=== PATIENT | male | born 1980 | race Caucasian/White ===

== ENCOUNTER 2021-02-02 23:58 | Emergency (ER) | payer MEDICAID ==
[2021-02-03] MEDS ORDERED: CLINDAMYCIN 900 MG/50 ML 50 ML IV STA (00:42)
[2021-02-03] MEDS ORDERED: AMPICILLIN/SULBACTAM 3 GM in SODIUM CHLORIDE 0.9% MINIBAG 100 ML IV STA (00:45)
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
[2021-02-03 01:11] LABS: BASOPHILS # (AUTO) 0.1 10^3/uL (0.0-0.1); BASOPHILS % (AUTO) 0.3 %; EOSINOPHILS # (AUTO) 0.1 10^3/uL (0.0-0.7); EOSINOPHILS % (AUTO) 0.4 %; HGB - HEMOGLOBIN 14.8 g/dL (14.0-18.0); LYMPHOCYTES # (AUTO) 0.8 10^3/uL (1.5-3.5); LYMPHOCYTES % (AUTO) 4.8 %; MEAN CORPUSCULAR HEMOGLOBIN 30.2 pg (27.0-31.0); MEAN CORPUSCULAR HGB CONC 34.4 g/dL (32.0-36.0); MEAN CORPUSCULAR VOLUME 87.8 fL (80.0-94.0); MEAN PLATELET VOLUME 10.2 fL (7.4-11.4); MONOCYTES # (AUTO) 0.9 10^3/uL (0.0-1.0); MONOCYTES % (AUTO) 5.3 %; NEUTROPHILS # (AUTO) 14.2 10^3/uL (1.5-6.6); NEUTROPHILS % (AUTO) 88.9 %; PLT - PLATELET COUNT 319 10^3/uL (130-450); RED CELL DISTRIBUTION WIDTH 12.8 % (12.0-15.0); WHITE BLOOD COUNT 15.9 x10^3/uL (4.8-10.8)
[2021-02-03 01:21] LABS: ALBUMIN 4.4 g/dL (3.2-5.5); ALBUMIN/GLOBULIN RATIO 1.5 (1.0-2.2); BILIRUBIN,TOTAL 0.9 mg/dL (0.2-1.0); CALCIUM 9.4 mg/dL (8.5-10.3); CREATININE 1.5 mg/dL (0.6-1.2); POTASSIUM 3.8 mmol/L (3.5-5.0); TOTAL PROTEIN 7.3 g/dL (6.7-8.2)
--- NOTE | 2021-02-03 01:23 | XRAY Report ---
PROCEDURE: Hand 3 View RT INDICATIONS: right hand swelling, redness TECHNIQUE: 3 views of the hand(s) acquired. COMPARISON: None FINDINGS: Bones: No fractures or dislocations. No suspicious bony lesions. No bony erosive changes. Soft tissues: No suspicious soft tissue calcifications. Soft tissue swelling surrounding fourth PIP joint is seen. IMPRESSION: Soft tissue swelling surrounding fourth PIP joint. No right hand fracture or dislocation. No radiogra phic evidence of osteomyelitis. Reviewed by: Brody Marvin MD on 02/03/2021 1:21 AM PST Approved by: Brody Marvin MD on 02/03/2021 1:21 AM PST Station ID: [id number]
[2021-02-03] MEDS ORDERED: CLINDAMYCIN 900 MG/50 ML 50 ML IV ONE (01:59)
[2021-02-03 03:03] VITALS: BP 148/83
== END 2021-02-03 03:15 | disposition left against medical advice (07) ==
LOC: ED 23:58
DX: I89.1 Lymphangitis (principal); M79.89 Other specified soft tissue disorders; Z53.29 Procedure and treatment not carried out because of patient's decision for other reasons; F17.200 Nicotine dependence, unspecified, uncomplicated
CPT/HCPCS: 36415; 80053; 85025; 87040; 96365; 96367; 99283

== ENCOUNTER 2021-02-26 05:39 | Emergency (ER) | payer MEDICAID ==
[2021-02-26 05:50] VITALS: BP 138/93
[2021-02-26] MEDS ORDERED: LIDOCAINE 1% 2 ML VIAL SUBQ STA (06:21)
--- NOTE | 2021-02-26 06:21 | ED Physician Documentation ---
PD HPI LOWER EXT INJURY - Stated complaint Stated Complaint: L FOOT INJ - Chief complaint Chief Complaint: Laceration - History obtained from History obtained from: Patient - History of Present Illness PD HPI LOW EXT INJURY LOCATION: Left, Foot Type of injury: Puncture wound Timing - details: Abrupt onset Pain level now: 5 Improved by: Rest Worsened by: Palpating, Other (weight-bearing) Associated symptoms: Swelling, Discolored Recently seen: Not recently seen - Additional information Additional information: patient stepped on a carpentry nail 3 days ago; the nail punctured the sole of his left foot. He was wearing sneakers and socks at the time of the injury. There has been increased pain and swelling with redness surrounding the puncture site since the injury. Denies fever. Last tetanus was 8 years ago Review of Systems Constitutional: denies: Fever Skin: reports: Rash (erythema surrounding puncture wound of left foot), Other (puncture to left foot) Musculoskeletal: reports: Extremity pain (left foot), Pain with weight bearing (left foot) PD PAST MEDICAL HISTORY - Past Medical History Cardiovascular: None Respiratory: None Endocrine/Autoimmune: None GI: None : None HEENT: None Psych: Anxiety Musculoskeletal: None, Chronic back pain Derm: None - Past Surgical History Past Surgical History: Yes HEENT: Myringotomy (tubes) - Present Medications Home Medications: Ambulatory Orders Medication Instructions Recorded Confirmed Ciprofloxacin HCl [Cipro] 500 mg PO BID #20 tablet 02/26/21 Oxycodone HCl/Acetaminophen 1 - 2 each PO Q6H PRN #14 tablet 02/26/21 [Percocet 5-325 mg Tablet] - Allergies Allergies/Adverse Reactions: Allergies Allergy/AdvReac Type Severity Reaction Status Date / Time ceftriaxone sodium * Allergy unknown Verified 02/26/21 05:51 [From Rocephin] iodine Allergy vomiting Verified 02/26/21 05:51 - Social History Does the pt smoke?: Yes Smoking Status: Current every day smoker Does the pt drink ETOH?: Yes Does the pt have substance abuse?: Yes - Immunizations Immunizations are current?: Yes Immunizations: TDAP >10years/unknown - POLST Patient has POLST: No PD ED PE NORMAL - Vitals Vital signs reviewed: Yes - General General: Alert and oriented X 3, No acute distress, Well developed/nourished PD ED PE EXPANDED - Extremities Feet visual: 1 - swelling (swelling, TTP, surrounding confluent erythema, mild fluctuance), tenderness Results - Vitals Vitals: Oxygen O2 Source Room air - Labs Labs: Microbiology 02/26/21 07:01 Wound Culture - Preliminary Abscess Beta Hemolytic Strep Group A Procedures - Abscess I&D (location) Foot left Plantar Preparation: Chlorhexadine, Lidocaine 1% Incision: Purulent drainage, Culture obtained, Other (bevelled edge of 18g needle (on 3 cc syringe) used to make small (3-4 mm length) incision into area of maximal fluctuance) Other: Pt tolerated well, Dressing applied, Antibiotic prescribed PD MEDICAL DECISION MAKING - ED course Complexity details: considered differential, d/w patient ED course: Puncture wound to left foot through footwear 3 days ago with obvious signs of infection on exam (swelling, erythema, fluctuance). I+D performed with pus return. Last tetanus was 8 years ago, but given the nature of the injury (would be considered a tetanus-prone wound), will give tetanus booster. Rx cipro to cover typical pathogens but broadened to include pseudomonas considering puncture wound through footwear. Follow up for recheck of the wound was encouraged and return to ED precautions discussed I am prescribing a short course of short-acting opioid pain medication for this patient. I have reviewed the patients DIRECTOR OF MEDICAL REVIEW and no concerning findings were noted. I have discussed that the opioids are for short term therapy only, and will not be refilled from the ED. Departure - Departure Disposition: 01 Home, Self Care Clinical Impression: Puncture wound of foot, left Qualifiers: Encounter type: initial encounter Qualified Code(s): S91.332A - Puncture wound without foreign body, left foot, initial encounter Condition: Good Instructions: ED Infec Skin Cellulitis, ED Wound Puncture General Prescriptions: Ciprofloxacin HCl [Cipro] 500 mg PO BID #20 tablet Oxycodone HCl/Acetaminophen [Percocet 5-325 mg Tablet] 1 - 2 each PO Q6H PRN #14 tablet PRN Reason: pain Comments: Follow up with your primary care provider in 3-5 days for recheck of the wound. Prescriptions for an antibiotic (cipro) and pain medication (percocet) have been electronically submitted to [facility] pharmacy in [place]. I am prescribing a short course of narcotic pain medication for you. These are potentially dangerous and addictive medications that should be used carefully. These medications may constipate you. Take an [id number] stool softener (docusate) twice daily with plenty of water while taking these medications. If you go 24 hours without a bowel movement, take [id number] miralax, per package instructions. Do not drink or drive while taking these medications. If you received narcotic or sedating medications while in the emergency department, do not drive for 24 hours. Store this medication in a safe, secure place and out of reach of children. It is a violation of federal law to give or sell this medication to another person or to use in a manner other than prescribed. The ED will not refill narcotic prescriptions, including prescriptions lost or stolen. To dispose of unwanted medications: 1. [facility] at [address] in [place] has a medication drop box. They accept prescription medications (in pill form) Thursday through Thursday 9:00 a.m. to 5:00 p.m. 2. The [facility] [employer] accepts prescription medications (in pill form only) for disposal year round. Call for more in formation. 3. Contact the [facility] for the next [facility] sponsored prescription drug collection event. , [phone], or [phone]; Discharge Date/Time: 02/26/21 08:00
[2021-02-26] MEDS ORDERED: TETANUS/DIPHTHERIA/PERTUSSIS 0.5 ML SYRINGE IM ONE (06:22)
[2021-02-26] MEDS ORDERED: CIPROFLOXACIN 250 MG TABLET PO STA (07:46)
== END 2021-02-26 08:00 | disposition home or self-care (01) ==
LOC: ED 05:39
DX: S91.332A Puncture wound without foreign body, left foot, initial encounter (principal); W45.0XXA Nail entering through skin, initial encounter; W22.8XXA Striking against or struck by other objects, initial encounter; L08.9 Local infection of the skin and subcutaneous tissue, unspecified; Z23 Encounter for immunization; F17.200 Nicotine dependence, unspecified, uncomplicated
CPT/HCPCS: 10060; 87070; 87077; 87205; 90471; 90715; 99283; A9270

== ENCOUNTER 2021-06-23 21:41 | Emergency (ER) | payer MEDICAID ==
--- NOTE | 2021-06-23 22:35 | ED Physician Documentation ---
PD HPI SKIN - Stated complaint Stated Complaint: L LEG INFECTION - Chief complaint Chief Complaint: Wound - History obtained from History obtained from: Patient (s) - History of Present Illness Timing - onset: How many days ago (2) Timing - details: Gradual onset Location: LLE Quality / character: Painful, Discolored, Swelling Associated symptoms: No: Fever Recently seen: Not recently seen - Additional information Additional information: c/o left lower leg erythema, swelling, tenderness x 2 days. no recent injury. He says he was able to express pus from the lesion yesterday but presents due to steadily increasing size of the lesion and extent of surrounding swelling Review of Systems Constitutional: reports: Reviewed and negative Musculoskeletal: reports: Extremity pain, Extremity swelling PD PAST MEDICAL HISTORY - Past Medical History Past Medical History: Yes Cardiovascular: None Respiratory: None Endocrine/Autoimmune: None GI: None : None HEENT: None Psych: Anxiety Musculoskeletal: None, Chronic back pain Derm: None - Past Surgical History Past Surgical History: Yes HEENT: Myringotomy (tubes) - Present Medications Home Medications: Ambulatory Orders Medication Instructions Recorded Confirmed Sulfamethox/Trimeth 800/160 1 tablet PO BID 10 Days #14 tablet 06/23/21 [Bactrim Ds] cephALEXin [Keflex] 500 mg PO Q6H #28 cap 06/23/21 - Allergies Allergies/Adverse Reactions: Allergies Allergy/AdvReac Type Severity Reaction Status Date / Time ceftriaxone sodium * Allergy unknown Verified 06/23/21 21:48 [From Rocephin] iodine Allergy vomiting Verified 06/23/21 21:48 - Social History Does the pt smoke?: Yes Smoking Status: Current every day smoker Does the pt drink ETOH?: Yes Does the pt have substance abuse?: Yes - Immunizations Immunizations are current?: Yes Immunizations: TDAP >10years/unknown - POLST Patient has POLST: No PD ED PE NORMAL - Vitals Vital signs reviewed: Yes - General General: Alert and oriented X 3, No acute distress, Well developed/nourished PD ED PE EXPANDED - Extremities CARMINA LE visual: 1 - swelling (confluent erythema, TTP, no fluctuance or discharge. swelling (without erythema) extends distally to ankle and proximally to upper pre-tibial area), tenderness Results - Vitals Vitals: Oxygen O2 Source Room air - Labs Labs: Microbiology 06/23/21 21:52 Wound Culture - Final Left Lower Extremity Methicillin Resist S. Aureus PD MEDICAL DECISION MAKING - ED course Complexity details: reviewed old records, considered differential, d/w patient ED course: presents with cellulitis LLE, scant discharge on arrival that was sent for wound culture by ED RN (no discharge was still present by the time of my exam). Will cover for bacterial cellulitis, given keflex and bactrim in ED and p rescriptions for same transmitted to his pharmacy of choice. We discussed antibiotic options and he says he has had cephalexin the past without adverse reaction (ceftriaxone is listed as an allergy). Departure - Departure Disposition: 01 Home, Self Care Clinical Impression: Cellulitis Qualifiers: Site of cellulitis: extremity Site of cellulitis of extremity: lower extremity Laterality: left Qualified Code(s): L03.116 - Cellulitis of left lower limb Condition: Good Instructions: ED Infec Skin Cellulitis Follow-Up: [facility] [Provider Group] Prescriptions: Sulfamethox/Trimeth 800/160 [Bactrim Ds] 1 tablet PO BID 10 Days #14 tablet cephALEXin [Keflex] 500 mg PO Q6H #28 cap Comments: Follow up with your primary care provider in 3-4 days for reevaluation. Prescriptions for antibiotics (keflex and bactrim) have been electronically submitted to [facility] pharmacy in [place] Discharge Date/Time: 06/23/21 23:00
[2021-06-23] MEDS ORDERED: SULFAMETH/TRIMETH DS 800/160 MG TABLET PO STA (22:55)
[2021-06-23] MEDS ORDERED: cephALEXin 250 MG CAPSULE PO STA (22:55)
[2021-06-23 23:01] VITALS: BP 135/72
== END 2021-06-23 23:00 | disposition home or self-care (01) ==
LOC: ED 21:41
DX: L03.116 Cellulitis of left lower limb (principal); F17.200 Nicotine dependence, unspecified, uncomplicated
CPT/HCPCS: 87070; 87181; 87205; 99282; 99283; A9270

== ENCOUNTER 2022-04-07 12:03 | Emergency (ER) | payer MEDICAID ==
--- NOTE | 2022-04-07 12:45 | ED Physician Documentation ---
History of Present Illness - Stated complaint Stated Complaint: HERNIA - Chief complaint Chief Complaint: Abd Pain - Additonal information Additional information: 41-year-old male presents emergency department for evaluation of intermittent right inguinal pain. He believes he has a hernia. 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 A number weeks ago he was having a bowel movement and thinks he may have strained too hard as he felt a pop. He reports that when he is up and about during the day wearing his work belt and tight pants he does not have pain but when he gets home at the end of the day he showers and removes his usual work clothing he begins to have pain. He often feels a swelling in this region that he is able to push back in. He has had no fevers, no history of surgical procedures on his abdomen. He has no melena or hematochezia. He is currently transitioning from [facility] to a different health insurance as he is unable to get primary follow-up on the jerome with melena. History obtained from patient. Reliable historian Review of Systems Constitutional: reports: Reviewed and negative GI: reports: Abdominal Pain : reports: Other (infuinal hernia) Skin: reports: Reviewed and negative Musculoskeletal: reports: Reviewed and negative Neurologic: reports: Reviewed and negative PD PAST MEDICAL HISTORY - Past Medical History Past Medical History: Yes Cardiovascular: None Respiratory: None Neuro: None Endocrine/Autoimmune: None GI: None : None HEENT: None Psych: Anxiety Musculoskeletal: Chronic back pain Derm: None - Past Surgical History Past Surgical History: Yes HEENT: Myringotomy (tubes) - Present Medications Home Medications: Ambulatory Orders Medication Instructions Recorded Confirmed No Known Home Medications 04/07/22 04/07/22 - Allergies Allergies/Adverse Reactions: Allergies Allergy/AdvReac Type Severity Reaction Status Date / Time ceftriaxone sodium * Allergy unknown Verified 04/07/22 12:13 [From Rocephin] iodine Allergy vomiting Verified 04/07/22 12:13 - Social History Does the pt smoke?: Yes Smoking Status: Current every day smoker Does the pt drink ETOH?: Yes Does the pt have substance abuse?: No - Immunizations Immunizations are current?: No Immunizations: Other immun not current - POLST Patient has POLST: No PD ED PE NORMAL - General General: Alert and oriented X 3, No acute distress - Neck Neck: Supple, no meningeal sign - Cardiac Cardiac: RRR, No murmur - Respiratory Respiratory: No respiratory distress - Abdomen Abdomen: Normal bowel sounds, Soft, Non tender, Other (Easily reducible right inguinal hernia. No swelling, no erythema or induration. No tenderness in the lower abdomen otherwise. Negative McBurney's) - Derm Derm: Warm and dry - Extremities Extremities: No deformity - Neuro Neuro: Alert and oriented X 3 Eye Opening: Spontaneous Motor: Obeys Commands Verbal: Oriented GCS Score: 15 Results - Vitals Vitals: Vital Signs - 24 hr 04/07/22 12:09 Temperature 36.1 C L Heart Rate 65 Respiratory 16 Rate Blood Pressure 150/90 H O2 Saturation 100 Oxygen O2 Source Room air PD Medical Decision Making - ED course Complexity details: considered differential, d/w patient ED course: This is a well-appearing 41-year-old male who presents emergency department for evaluation of intermittent right inguinal pain at an area where he felt a pop a number of weeks ago after having a bowel movement. Clinically on exam is able to bear down and a small pouch appears. But when he relaxes his abdomen it fully dissipates. Clinically history and exam is consistent with a reducible inguinal hernia. There is nothing to suggest incarceration or strangulation thus advanced imaging was deferred. His abdominal exam is benign without fevers or vomiting and a negative McBurney's. I have very low suspicion for other occult process such as bowel obstruction or acute appendicitis. Patient is advised to follow-up with a local walk-in clinic in order to obtain referral to surgery. He is also attempting to establish with a new provider once he changes his insurance at the beginning of the month. We did discuss the routine conservative care of inguinal hernias as well as typical reduction measures and emergent return precautions for concerns of incarceration or strangulation. Departure - Departure Disposition: 01 Home, Self Care Clinical Impression: Right inguinal hernia Condition: Stable Record reviewed to determine appropriate education?: Yes Instructions: ED Hernia Inguinal Comments: Aidan you developed a right inguinal hernia a number of weeks ago. This is when the lower pelvic floor muscle becomes weak and allows abdominal contents to poke through it such as fat or even intestine. As we discussed at the bedside your hernia is very easily reducible and shows no signs of incarceration or strangulation. This is where abdominal contents get trapped and cannot be pushed back in. You will need to be seen by a surgeon for longer-term evaluation and management. When you receive your new insurance on April 17 I encourage you to go to any one of the local walk-in clinics. They can make the referral for you to surgery from there. Otherwise you will need to receive the referral from your primary care doctor. You should still establish with a primary care doctor as soon as you are able. Reasons to return to the emergency department would be if you develop the in guinal pain and are unable to reduce your hernia as shown at the bedside, you have an area of redness or firmness that is extremely tender to touch, you have fevers, vomiting or black/bloody bowel movements.
[2022-04-07 12:55] VITALS: BP 149/101
== END 2022-04-07 12:54 | disposition home or self-care (01) ==
LOC: ED 12:03
DX: K40.90 Unilateral inguinal hernia, without obstruction or gangrene, not specified as recurrent (principal); F17.200 Nicotine dependence, unspecified, uncomplicated
CPT/HCPCS: 99281; 99283

== ENCOUNTER 2022-11-03 16:39 | Outpatient (CLI) | payer MEDICAID ==
--- NOTE | 2022-11-04 11:30 | Ultrasound Report ---
PROCEDURE: Pelvic Limited or F/U INDICATIONS: INGUINAL HERNIA TECHNIQUE: Soft tissue ultrasound was obtained. COMPARISON: None. FINDINGS: Right inguinal hernia containing fat and peristalsing bowel is noted associated with a 2.1 cm fascial defect. No evidence of obstruction. IMPRESSION: Right inguinal hernia containing peristalsing bowel Reviewed by: Rene Singer MD on 11/04/2022 10:29 AM FELICITA Approved by: Rene Singer MD on 11/04/2022 10:29 AM [place] Station ID: [id number]
== END 2022-11-03 16:40 | disposition home or self-care (01) ==
LOC: DI 16:39
PROVIDERS: ATTEND Surgery
DX: K40.90 Unilateral inguinal hernia, without obstruction or gangrene, not specified as recurrent (principal)

== ENCOUNTER 2022-12-18 09:00 | Day surgery (SDC) | payer MEDICAID ==
[~2022-12-18 09:00] MED LIST: ceFAZolin 2 GM VIAL ONE
[2022-12-18] MEDS ORDERED: LACTATED RINGERS 1,000 ML IV ONE ×2 (09:12→11:54)
--- NOTE | 2022-12-18 09:40 | ANESTHESIA ---
Pre-Anesthesia VS, & Labs - Diagnosis R inguinal hernia - Procedure R inguinal hernia repair w/mesh Vital Signs: Temp Pulse Resp BP Pulse Ox O2 Flow Rate 36.5 C 86 16 129/85 H 98 12/18/22 09:13 12/18/22 09:13 12/18/22 09:13 12/18/22 09:13 12/18/22 09:13 Height: 6 ft 1 in Weight (kg): 86.9 kg Body Mass Index: 25.2 BMI Classification: Overweight - NPO >8 hours Last Fluid Intake: sips h2o this am - Lab Results Lab results reviewed: Yes Home Medications and Allergies Home Medications: Ambulatory Orders Amoxicillin 500 mg PO TID 12/15/22 Amoxicillin 500 mg PO TID 12/15/22 Allergies/Adverse Reactions: Allergies Allergy/AdvReac Type Severity Reaction Status Date / Time No Known Drug Allergies Allergy Verified 12/15/22 14:35 Anes History & Medical History - Anesthetic History Anesthesia Complications: reports: No previous complications Family history of Anesthesia Complications: Denies Family history of Malignant Hyperthermia: Denies - Medical History Cardiovascular: reports: None Pulmonary: reports: None Gastrointestinal: reports: None Urinary: reports: None Neuro: reports: None Musculoskeletal: reports: Chronic back pain Endocrine/Autoimmune: reports: None Blood Disorders: reports: None Skin: reports: None Smoking Status: Current every day smoker Psychosocial: reports: Anxiety, Substance abuse, Alcohol, Amphetamine (remote hx), Cannabis (daily) - Surgical History Eyes Ears Nose Throat (EENT): reports: Myringotomy (tubes) Exam General: Alert, Oriented x3, Cooperative Dental: Poor dentition, Other (several missing, carries, denies any teeth being loose) Mouth Openin Fingerbreadth Neck Mobility: Normal Mallampati classification: II Respiratory: Lungs clear, Normal breath sounds, No respiratory distress Cardiovascular: Regular rate Neurological: Normal speech Mental/Cognitive Status: Alert/Oriented X3, Normal for patient Cognitive Status: Within normal limits Plan Anesthesia Type: General Consent for Procedure(s) Verified and Reviewed: Yes Code Status: Attempt Resuscitation ASA classification: 2-Mild systemic disease Is this case an emergency?: No
[2022-12-18] MEDS ORDERED: MIDAZOLAM 2 MG/2 ML VIAL ONE (09:49)
[2022-12-18] MEDS ORDERED: fentaNYL 100 MCG/2 ML VIAL ONE (09:49)
[2022-12-18] MEDS ORDERED: PROPOFOL 500 MG/50 ML 500 MG/50 ML VIAL ONE (09:49)
[2022-12-18] MEDS ORDERED: KETAMINE 200 MG/20 ML VIAL ONE (09:54)
[2022-12-18] MEDS ORDERED: BUPIVACAINE 0.25% PF 30 ML VIAL ONE (10:00)
--- NOTE | 2022-12-18 10:10 | HISTORY & PHYSICAL EXAMINATION ---
Chief Complaint - Chief Complaint Chief Complaint: painful right inguinal hernia History of Present Illness - History Obtained From Records Reviewed: yes History obtained from: pt Exam Limitations: none - History of Present Illness HPI Comment/Other: large symptomatic right inguinal hernia History - Past Medical History Cardiovascular: reports: None Respiratory: reports: None Neuro: reports: None Endocrine/Autoimmune: reports: None GI: reports: None : reports: None HEENT: reports: None Psych: reports: None Musculoskeletal: reports: Chronic back pain Derm: reports: None MRSA Hx?: Yes - Past Surgical History HEENT: reports: Myringotomy (tubes) - POLST Patient has POLST: No Meds/Allgy - Home Medications Home Medications: Ambulatory Orders Medication Instructions Recorded Confirmed Amoxicillin 500 mg PO TID 12/15/22 12/15/22 - Allergies Allergies/Adverse Reactions: Allergies Allergy/AdvReac Type Severity Reaction Status Date / Time No Known Drug Allergies Allergy Verified 12/15/22 14:35 Review of Systems - Other Findings Other Findings: 10 pt ros as above otherwise unremarkable Exam - Vital Signs Vital Signs: Vital Signs x48h Temp Pulse Resp BP Pulse Ox 12/18/22 09:13 36.5 C 86 16 129/85 H 98 - Physical Exam General Appearance: positive: Alert Eyes Bilateral: positive: PERRL, EOMI ENT: positive: No signs of dehydration Neck: positive: No JVD, Trachea midline Respiratory: positive: No respiratory distress, Breath sounds nml Cardiovascular: positive: Regular rate & rhythm Abdomen: positive: Other (right inguinal hernia present) Neurologic/Psychiatric: positive: Oriented x3 Conclusion/Plan - Problem List (1) Inguinal hernia Conclusion/Plan: plan open repair with mesh. parq held and consent obtained - Lab Results Lab results reviewed: Yes
[2022-12-18] MEDS ORDERED: ONDANSETRON 4 MG/2 ML VIAL ONE (10:32)
[2022-12-18] MEDS ORDERED: BUPIVACAINE 0.25% PF 30 ML VIAL SUBQ ONE (10:32)
[2022-12-18] MEDS ORDERED: DEXAMETHASONE 4 MG/ML VIAL ONE (10:32)
[2022-12-18] MEDS ORDERED: oxyCODONE 5 MG TABLET PO PRN (12:06)
[2022-12-18] MEDS ORDERED: ATROPINE ABBOJECT 1 MG/10 ML SYRINGE IVP PRN (12:14)
[2022-12-18] MEDS ORDERED: HYDROmorphone 0.5 MG/0.5 ML SYRINGE IVP PRN (12:14)
[2022-12-18] MEDS ORDERED: fentaNYL 100 MCG/2 ML VIAL IVP PRN (12:14)
[2022-12-18] MEDS ORDERED: NALOXONE 0.4 MG/ML VIAL IVP PRN (12:14)
[2022-12-18] MEDS ORDERED: ePHEDrine 50 MG/ML VIAL IVP PRN (12:14)
[2022-12-18] MEDS ORDERED: ONDANSETRON 4 MG/2 ML VIAL IVP PRN (12:14)
[2022-12-18] MEDS ORDERED: MORPHINE 2 MG/ML CARPUJECT IVP PRN (12:14)
[2022-12-18] MEDS ORDERED: METOCLOPRAMIDE 10 MG/2 ML VIAL IVP PRN (12:14)
--- NOTE | 2022-12-18 12:36 | OPERATIVE REPORT ---
Operative Report - General Procedure Date: 12/18/22 Planned Procedure: open right inguinal hernia repair with mesh Pre-Op Diagnosis: large indirect inguinal hernia Procedure Performed: same Post Op Diagnosis: same - Procedure Note Primary Surgeon: amanda reagan Anesthesia Technique: General LMA, Local Pathology: sac and fat not sent Estimated Blood Loss (mL): 2 Drain/Tube Type: Other (none) Indications: painful hernia bulge Findings: branching ilioinguinal nerve. medial branch removed Complications: none - Other Other Information/Narrative: Patient was properly identified brought to the operating room and placed in supine position. Sequential compression devices were placed. Laryngeal mask anesthesia was induced. He was prepped and draped in a sterile fashion and given preoperative antibiotics. Local anesthetic was given throughout the procedure. A 5 cm incision was made in the direction of Amor's lines just cephalad of the pubic tubercle. Dissection proceeded with cutting current cautery. The superficial epigastric vein was identified clamped divided and tied with 3-0 Vicryl. Dissection proceeded down to the aponeurosis. The aponeurosis was opened in the direction of its fibers and extended to the external ring. Cord structures were mobilized and brought up. The nerves were carefully protected and preserved. Cord structures were mobilized and brought up. An indirect inguinal hernia was present. The hernia sac was mobilized off the cord structures and suture ligated with 2 O silk and further reduced. Preperitoneal fat was removed. The base was tied with 2 O vicryl. Polypropylene mesh was cut to size and with tails. The mesh was secured with multiple interrupted 0 Ethibond sutures. She was placed along the pubic tubercle, Cortez's ligament area and along the shelving border of Poupart's ligament. Sutures were placed medially along the abdominal wall musculature and internal oblique. The medial tail of the mesh was secured to the shelving border of Poupart's ligament with 3 interrupted 0 ethibond sutures . An additional suture was placed in the crotch of the mesh recreating an internal ring of appropriate size. Aponeurosis was closed with a running 2-0 Vicryl suture. Scarpas fascia was closed with interrupted 3-0 Vicryl suture. Buried interrupted subdermal 3-0 Vicryl sutures were then placed. Skin was closed with a running 4-0 Monocryl subcuticular suture. Dressing was applied. Patient was awakened and brought to recovery in good condition.
[2022-12-18] MEDS ORDERED: LACTATED RINGERS 1,000 ML IV SCH (13:00)
[2022-12-18 13:08] VITALS: BP 138/82; O2SAT 98
--- NOTE | 2022-12-18 13:29 | ANESTHESIA POST OP EVALUATION ---
Anesthesia Post Eval - Post Anesthesia Eval Vitals: Last Vital Signs Temp 36.3 C L 12/18/22 13:04 Pulse 71 12/18/22 13:04 Resp 16 12/18/22 13:04 BP 138/82 H 12/18/22 13:04 Pulse Ox 98 12/18/22 13:04 O2 Flow Rate CV Function Including HR & BP: Stable Pain Control: Satisfactory Nausea & Vomiting: Negative Mental Status: Baseline Respiratory Status: Airway Patent Hydration Status: Satisfactory Anesthesia Complications: None
== END 2022-12-18 09:01 | disposition home or self-care (01) ==
LOC: SDS 09:00
PROVIDERS: ATTEND Surgery
DX: K40.90 Unilateral inguinal hernia, without obstruction or gangrene, not specified as recurrent (principal); F17.200 Nicotine dependence, unspecified, uncomplicated
CPT/HCPCS: 49505; C1781; J3490; J7120

== ENCOUNTER 2023-05-19 17:44 | Emergency (ER) | payer MEDICAID ==
[2023-05-19 17:56] VITALS: BP 140/84; O2SAT 100
--- NOTE | 2023-05-19 18:30 | ED Physician Documentation ---
PD HPI HEENT - Stated complaint Stated Complaint: JAW PX - Chief complaint Chief Complaint: Heent - History obtained from History obtained from: Patient - Additional information Additional information: DEVELOPED DENTAL PAIN SWLLING R MANDIBLE STARTING YESTERDAY NO FEVER PD PAST MEDICAL HISTORY - Past Medical History Past Medical History: Yes Cardiovascular: None Respiratory: None Neuro: None Endocrine/Autoimmune: None GI: None : None HEENT: None Psych: None Musculoskeletal: Chronic back pain Derm: None - Past Surgical History Past Surgical History: Yes HEENT: Myringotomy (tubes) - Present Medications Home Medications: Ambulatory Orders Medication Instructions Recorded Confirmed Azithromycin [Zithromax] 1 tab PO DAILY #4 tab 05/19/23 HYDROcod/ACETAM 5/325 [Brawley 5/325] 1 - 2 tab PO Q6H PRN #15 tablet 05/19/23 - Allergies Allergies/Adverse Reactions: Allergies Allergy/AdvReac Type Severity Reaction Status Date / Time No Known Drug Allergies Allergy Verified 05/19/23 17:46 - Social History Does the pt smoke?: Yes Smoking Status: Current every day smoker Does the pt drink ETOH?: No Does the pt have substance abuse?: Yes Substance Use and Type: Marijuana, CBD oil / Products - Immunizations Immunizations are current?: No Immunizations: Other immun not current - POLST Patient has POLST: No PD ED PE NORMAL - Vitals Vital signs reviewed: Yes - General General: Alert and oriented X 3, No acute distress - HEENT HEENT: Other (ABSCESS LATERAL TO R PAULINE PREMOLAR. NO SUBLINGUAL EDEMA. NO TRISMUS.) - Neuro Neuro: Alert and oriented X 3 Results - Vitals Vitals: Vital Signs - 24 hr 05/19/23 17:46 Temperature 36 C L Heart Rate 72 Respiratory 16 Rate Blood Pressure 140/84 H O2 Saturation 100 Oxygen O2 Source Room air Procedures - General procedure General procedure: DENTAL ABSCESS ASPIRATION. AREA OVER GUM ON R LAERAL MANDIBLE ANESTHETIZED WITH LIDO 1% WITH EPI. 18G NEEDLE USED TO ACCESS WITH PUS RETURN. PD Medical Decision Making - ED course ED course: HAS MILD DENTAL ABSCESS. NEEDLE ASPIARTION DONE WANTED [facility] SPECIFICALLY. Departure - Departure Disposition: Home, Self Care Clinical Impression: Pain, dental Condition: Good Record reviewed to determine appropriate education?: Yes Instructions: ED Tooth Pain Prescriptions: HYDROcod/ACETAM 5/325 [Brawley 5/325] 1 - 2 tab PO Q6H PRN #15 tablet PRN Reason: Pain Azithromycin [Zithromax] 1 tab PO DAILY #4 tab Comments: I SENT YOUR PRESCRIPTION TO [facility] [place] [facility] TO SEE A DENTIST MEDHAT. TRY SEA MAR TOMORROW OR TRY CALLING DR LOMBARDI. DO NOT DRINK OR DRIVE WITH PAIN MEDS.
[2023-05-19] MEDS: AZITHROMYCIN 250 MG TABLET PO STA (18:32)
[2023-05-19] MEDS: oxyCODONE 5 MG TABLET PO STA (18:32)
== END 2023-05-19 18:40 | disposition home or self-care (01) ==
LOC: ED 17:44
DX: K04.7 Periapical abscess without sinus (principal); F17.200 Nicotine dependence, unspecified, uncomplicated
CPT/HCPCS: 41800; 99282; 99283; A9270

== ENCOUNTER 2023-06-11 13:50 | Emergency (ER) | payer MEDICAID ==
[2023-06-11 14:06] VITALS: BP 160/90; O2SAT 100
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
--- NOTE | 2023-06-11 16:03 | CT Report ---
PROCEDURE: Head WO INDICATIONS: head inj TECHNIQUE: Noncontrast 4.5 mm thick angled axial sections acquired from the foramen magnum to the vertex. For r adiation dose reduction, the following was used: automated exposure control, adjustment of mA and/or kV according to patient size. COMPARISON: None. FINDINGS: Image quality: Excellent. CSF spaces: Basal cisterns are patent. No extra-axial fluid collections. Ventricles are normal in size and shape. Brain: No midline shift. No intracranial masses or hemorrhage. Marie-white matter interface is norm al. Skull and face: Calvarium and visualized facial bones are intact, without suspicious lesions. Sinuses: Visualized sinuses demonstrate minimal scattered areas of mucosal thickening.. IMPRESSION: No acute intracranial pathology. Reviewed by: Angelique Raines MD on 06/11/2023 4:02 PM PDT Approved by: Angelique Raines MD on 06/11/2023 4:02 PM PDT Station ID: [id number]
== END 2023-06-11 16:15 | disposition home or self-care (01) ==
LOC: ED 13:50
DX: S09.90XA Unspecified injury of head, initial encounter (principal); V00.831A Fall from motorized mobility scooter, initial encounter; F17.200 Nicotine dependence, unspecified, uncomplicated
CPT/HCPCS: 99283; 99284